=== PATIENT | female | born 1980 | race Caucasian/White ===

== ENCOUNTER 2016-05-03 21:39 | Emergency (ER) | payer SELFPAY ==
[~2016-05-03 21:39] MED LIST: FLINTSTONE VITAMINS PO; IBUP40TA PO; NICO14PA EXT; NORCOTAB PO
--- NOTE | 2016-05-03 22:59 | EDDOCDS ---
Physician Documentation [facility] Name: Melisa Rojas Age: 35 yrs Sex: Female : 1980 Arrival Date: 05/03/2016 Time: 21:39 Bed 15 Private MD: ARJUN DODGE Disposition: 05/03 22:45 Critical Care: Critical care not applicable. pc Disposition: 05/03/16 22:54 Discharged to Home/Self Care. Impression: Person with feared health complaint in whom no diagnosis is made - Normal scalp examination. - Condition is Stable. - Blank Diagnosis Outline, Medication Reconciliation, Local Pharmacy Hours form. - [facility] up[facility]; When: Call to arrange an appointment; Reason: To establish care. - Problem is new. - Symptoms are unchanged. HPI: 22:38 This 35 yrs old Female presents to ER via Walkin/Carried/Asstd with complaints of Skin Problem. 22:38 The history is obtained from the patient. She states her daughter had lice a few weeks pc ago and she has been having an itchy scalp for 6 days. She treated herself with the same shampoo used by her daughter but says she it didn't work. She has not seen any lice but is adamant that " a worm came out of my scalp today". She points to an area just above her left ear. She cannot describe the "worm" in any way and says she does not know what happened to it. She has not taken any meds for her itrching. The patient has been recently seen by a neurologist. 22:51 She denied seeing any provider except her Neurologist within the past month. Her [place] med search shows she was seen at [facility] ED just yesterday, receiving bowel care meds. When confronted with this information she attempted to deny it and then requested discharge home. Historical: - Allergies: Benadryl (hyper); - Home Meds: 1. Adderall XR 20 mg oral cp24 1 cap twice a day 2. Suboxone 8-2 mg SL film once daily 3. modafinil 200 mg oral tab 1 tab once daily - PMHx: Narcolepsy; Opioid Abuse; - PSHx: laproscopy for endometriosis; Cesearean Section; - The history from nurses notes was reviewed: and elements of the historical information I have obtained differs from that reported to nursing. - Social history: Smoking status: Patient uses tobacco products, heavy tobacco smoker. No barriers to communication noted, The patient speaks fluent Irish. - Family history: Not pertinent. - : The pt / caregiver states he / she is not on anticoagulants. Home medication list is obtained from the patient. - Hospitalizations: : No recent hospitalization is reported. - Exposure Risk Screening:: None identified. - Immunization history:: All immunizations up-to-date. - Social history:: the patient smokes cigarettes the patient drinks alcohol. 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 pc Exam: 22:42 General Appearance: no acute distress, alert, anxious. pc 22:42 EENT: Her entire scalp was inspected. There are no lesions, no areas of erythema, no areas of swelling, no skin eruptions, no lice/nits and only an occasional flake of dry skin. 22:42 Skin: skin color is normal, warm, dry, no rashes, no lesions. Vital Signs: 21:42 BP 144 / 87; Pulse 103; Resp 18 S; Temp 97.5(O); Pulse Ox 99% on R/A; Weight 58.97 kg / gr2 130.01 lbs (R); Height 5 ft. 4 in. (162.56 cm) (R); Pain 2/10; 22:58 BP 138 / 72; Pulse 100; Resp 18; Pulse Ox 99% on R/A; Pain 0/10; tm5 21:42 Body Mass Index 22.31 (58.97 kg, 162.56 cm) gr2 MDM: 22:45 Differential Diagnosis: anxiety reaction, no evidence of skin eruption/disorder, scalp pc pruritus. Plan: advice to establish with PCP. Data reviewed: old medical records, vital signs, nurses notes. Test interpretation: none. The patient has been re-examined and re-evaluated. There is no appreciated change of the patient's symptoms at this time. Disposition: The historical points, examination findings, and any diagnostic results supporting the provided diagnosis, were discussed with the patient or legal guardian. The need for outpatient follow up with the provider listed on their discharge instructions was discussed. They were encouraged to return to [facility], or the nearest ED, if symptoms worsen/persist, or for any other questions/concerns. Signatures: Joshua Mann MD MD Deidra LazaroRN RN rs3 Naila RussoRN RN tm5 The chart was reviewed and I authenticate all verbal orders and agree with the evaluation and treatment provided.Corrections: (The following items were deleted from the chart) 22:42 21:51 PMHx: norcolepsy; [facility] 22:42 21:51 PMHx: opiod addiction; [facility] 22:54 22:45 Plan: meds, advice to establish with PCP [facility] MTDD
--- NOTE | 2016-05-03 22:59 | EDDOCDS ---
Nurse's Notes [facility] Name: Melisa Rojas Age: 35 yrs Sex: Female : 1980 Arrival Date: 05/03/2016 Time: 21:39 Bed 15 Private MD: ARJUN DODGE Diagnosis: Person with feared health complaint in whom no diagnosis is made-Normal scalp examination Presentation: 05/03 21:45 Presenting complaint: Patient states: had step daughter treated for head lice few weeks rs3 ago. reports of itching and feeling of crawling in head for couple of days. has not visibly seen any headlice. Adult Sepsis Screening: The patient does not have new or worsening altered mentation. Patient's respiratory rate is less than 22. Systolic blood pressure is greater than 100. Patient has a qSOFA score of 0- Negative Sepsis Screen. Suicide/Homicide risk assessment- the patient denies having any suicidal and/or homicidal ideations and does not present with any other emotional, behavioral or mental health complaints. Status: Patient is not a manager managed backup services or dependent. Transition of care: patient was not received from another setting of care. 21:45 Acuity: ED Level 5 rs3 21:45 Method Of Arrival: Walkin/Carried/Asstd rs3 Triage Assessment: 21:51 General: Appears in no apparent distress. Pain: Denies pain. Pt Declines HIV testing. 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 Adderall XR 20 mg oral cp24 1 cap twice a day 2. Suboxone 8-2 mg SL film once daily 3. modafinil 200 mg oral tab 1 tab once daily - PMHx: Narcolepsy; Opioid Abuse; - PSHx: laproscopy for endometriosis; Cesearean Section; - The history from nurses notes was reviewed: and elements of the historical information I have obtained differs from that reported to nursing. - Social history: Smoking status: Patient uses tobacco products, heavy tobacco smoker. No barriers to communication noted, The patient speaks fluent Korean. - Family history: Not pertinent. - : The pt / caregiver states he / she is not on anticoagulants. Home medication list is obtained from the patient. - Hospitalizations: : No recent hospitalization is reported. - Exposure Risk Screening:: None identified. - Immunization history:: All immunizations up-to-date. - Social history:: the patient smokes cigarettes the patient drinks alcohol. Screenin:29 Screening information is obtained from the patient. Fall risk: No risks identified. tm5 Assistance ADL's: requires no assistance with activities of daily living. Abuse/DV Screen: The patient / caregiver reports he/she is: not in a situation that causes fear, pain or injury. Nutritional screening: No deficits noted. Advance Directives: There is no active DNR order. home support is adequate. Assessment: 22:29 General: Appears in no apparent distress, Behavior is appropriate for age, cooperative. tm5 Pain: Denies pain. Neurological: Level of Consciousness is awake, alert, obeys commands, Oriented to person, place, time. Respiratory: Airway is patent Respiratory effort is even, unlabored, Respiratory pattern is regular, symmetrical. Derm: Skin is pink, warm & dry. 22:58 Reassessment: Patient appears in no apparent distress at this time. tm5 Vital Signs: 21:42 BP 144 / 87; Pulse 103; Resp 18 S; Temp 97.5(O); Pulse Ox 99% on R/A; Weight 58.97 kg gr2 (R); Height 5 ft. 4 in. (162.56 cm) (R); Pain 2/10; 22:58 BP 138 / 72; Pulse 100; Resp 18; Pulse Ox 99% on R/A; Pain 0/10; tm5 21:42 Body Mass Index 22.31 (58.97 kg, 162.56 cm) gr2 Vitals: 21:42 Log In Time: May 03, 2016 at 21:42. gr2 ED Course: 21:41 Patient visited by No De La Torre. gr2 21:41 ARJUN DODGE is Private Physician. gr2 21:41 Patient moved to Waiting gr2 21:43 Patient visited by No De La Torre. gr2 21:43 Patient moved to Pre RCE gr2 21:48 Triage Initiated rs3 22:26 Patient moved to 15 cz 22:29 Awaiting ED physician evaluation. tm5 22:29 The patient / caregiver is instructed regarding the plan of care and ED course. tm5 22:29 No IV's were initiated during this patient's visit. tm5 22:30 Patient visited by Naila Russo,DEWEY. tm5 22:32 Joshua Mann MD is Attending Physician. pc 22:34 Patient visited by Naila Rsuso RN. tm5 22:34 ED physician to see patient. tm5 22:38 Patient visited by Joshua Mann MD. pc 22:54 [facility] is Referral Physician. pc 22:58 No procedures done that require assistance. tm5 Order Results: There are currently no results for this order. Outcome: 22:54 Discharge ordered by Provider. pc 22:58 Discharge Assessment: Patient awake, alert and oriented x 3. No cognitive and/or tm5 functional deficits noted. Patient verbalized understanding of disposition instructions. patient administered narcotics - no. The following High Risk Discharge criteria are identified: None. Discharged to home ambulatory, with friend. Condition: good. Discharge instructions given to patient, Instructed on discharge instructions, follow up and referral plans. Demonstrated understanding of instructions, Pt was receptive of discharge instructions/ teaching. No special radiology studies were completed. Property :Personal belongings accompany Pt. 22:59 Patient left the ED. tm5 Signatures: Joshua Mann MD MD Bj Humphrey RN RN cz Deidra Lazaro RN RN rs3 No De La Torre gr2 Naila Russo,DEWEY RN tm5 Corrections: (The following items were deleted from the chart) 21:49 21:45 Presenting complaint: Patient states: had step daughter treated for head lice few rs3 weeks ago. reports of itching and feeling of crawling in head for couple of days rs3 22:42 21:51 PMHx: norcolepsy; rs3 pc 22:42 21:51 PMHx: opiod addiction; rs3 pc MTDD
--- NOTE | 2016-05-06 00:01 | EDDOCDS ---
Physician Documentation [facility] Name: Melisa Rojas Age: 35 yrs Sex: Female : 1980 Arrival Date: 05/03/2016 Time: 21:39 Bed 15 Private MD: ARJUN DODGE Disposition: 05/03 22:45 Critical Care: Critical care not applicable. pc Disposition: 05/03/16 22:54 Discharged to Home/Self Care. Impression: Person with feared health complaint in whom no diagnosis is made - Normal scalp examination. - Condition is Stable. - Blank Diagnosis Outline, Medication Reconciliation, Local Pharmacy Hours form. - Follow up: [facility]; When: Call to arrange an appointment; Reason: To establish care. - Problem is new. - Symptoms are unchanged. HPI: 22:38 This 35 yrs old Female presents to ER via Walkin/Carried/Asstd with complaints of Skin Problem. 22:38 The history is obtained from the patient. She states her daughter had lice a few weeks pc ago and she has been having an itchy scalp for 6 days. She treated herself with the same shampoo used by her daughter but says she it didn't work. She has not seen any lice but is adamant that " a worm came out of my scalp today". She points to an area just above her left ear. She cannot describe the "worm" in any way and says she does not know what happened to it. She has not taken any meds for her itrching. The patient has been recently seen by a neurologist. 22:51 She denied seeing any provider except her Neurologist within the past month. Her [place] [facility] search shows she was seen at [facility] ED just yesterday, receiving bowel care meds. When confronted with this information she attempted to deny it and then requested discharge home. Historical: - Allergies: Benadryl (hyper); - Home Meds: 1. Adderall XR 20 mg oral cp24 1 cap twice a day 2. Suboxone 8-2 mg SL film once daily 3. modafinil 200 mg oral tab 1 tab once daily - PMHx: Narcolepsy; Opioid Abuse; - PSHx: laproscopy for endometriosis; Cesearean Section; - The history from nurses notes was reviewed: and elements of the historical information I have obtained differs from that reported to nursing. - Social history: Smoking status: Patient uses tobacco products, heavy tobacco smoker. No barriers to communication noted, The patient speaks fluent Upper Sorbian. - Family history: Not pertinent. - : The pt / caregiver states he / she is not on anticoagulants. Home medication list is obtained from the patient. - Hospitalizations: : No recent hospitalization is reported. - Exposure Risk Screening:: None identified. - Immunization history:: All immunizations up-to-date. - Social history:: the patient smokes cigarettes the patient drinks alcohol. 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 pc Exam: 22:42 General Appearance: no acute distress, alert, anxious. pc 22:42 EENT: Her entire scalp was inspected. There are no lesions, no areas of erythema, no areas of swelling, no skin eruptions, no lice/nits and only an occasional flake of dry skin. 22:42 Skin: skin color is normal, warm, dry, no rashes, no lesions. Vital Signs: 21:42 BP 144 / 87; Pulse 103; Resp 18 S; Temp 97.5(O); Pulse Ox 99% on R/A; Weight 58.97 kg / gr2 130.01 lbs (R); Height 5 ft. 4 in. (162.56 cm) (R); Pain 2/10; 22:58 BP 138 / 72; Pulse 100; Resp 18; Pulse Ox 99% on R/A; Pain 0/10; tm5 21:42 Body Mass Index 22.31 (58.97 kg, 162.56 cm) gr2 MDM: 22:45 Differential Diagnosis: anxiety reaction, no evidence of skin eruption/disorder, scalp pc pruritus. Plan: advice to establish with PCP. Data reviewed: old medical records, vital signs, nurses notes. Test interpretation: none. The patient has been re-examined and re-evaluated. There is no appreciated change of the patient's symptoms at this time. Disposition: The historical points, examination findings, and any diagnostic results supporting the provided diagnosis, were discussed with the patient or legal guardian. The need for outpatient follow up with the provider listed on their discharge instructions was discussed. They were encouraged to return to [facility], or the nearest ED, if symptoms worsen/persist, or for any other questions/concerns. Signatures: Joshua Mann MD MD Deidra LazaroRN RN rs3 Naila RussoRN RN tm5 The chart was reviewed and I authenticate all verbal orders and agree with the evaluation and treatment provided.Corrections: (The following items were deleted from the chart) 22:42 21:51 PMHx: norcolepsy; [facility] 22:42 21:51 PMHx: opiod addiction; [facility] 22:54 22:45 Plan: meds, advice to establish with PCP [facility] Chart Complete MTDD
--- NOTE | 2016-05-06 00:01 | EDDOCDS ---
Physician Documentation [facility] Name: Melisa Rojas Age: 35 yrs Sex: Female : 1980 Arrival Date: 05/03/2016 Time: 21:39 Bed 15 Private MD: ARJUN DODGE Disposition: 05/03 22:45 Critical Care: Critical care not applicable. pc Disposition: 05/03/16 22:54 Discharged to Home/Self Care. Impression: Person with feared health complaint in whom no diagnosis is made - Normal scalp examination. - Condition is Stable. - Blank Diagnosis Outline, Medication Reconciliation, Local Pharmacy Hours form. - Follow up: [facility]; When: Call to arrange an appointment; Reason: To establish care. - Problem is new. - Symptoms are unchanged. HPI: 22:38 This 35 yrs old Female presents to ER via Walkin/Carried/Asstd with complaints of Skin Problem. 22:38 The history is obtained from the patient. She states her daughter had lice a few weeks pc ago and she has been having an itchy scalp for 6 days. She treated herself with the same shampoo used by her daughter but says she it didn't work. She has not seen any lice but is adamant that " a worm came out of my scalp today". She points to an area just above her left ear. She cannot describe the "worm" in any way and says she does not know what happened to it. She has not taken any meds for her itrching. The patient has been recently seen by a neurologist. 22:51 She denied seeing any provider except her Neurologist within the past month. Her [employer] med search shows she was seen at [facility] ED just yesterday, receiving bowel care meds. When confronted with this information she attempted to deny it and then requested discharge home. Historical: - Allergies: Benadryl (hyper); - Home Meds: 1. Adderall XR 20 mg oral cp24 1 cap twice a day 2. Suboxone 8-2 mg SL film once daily 3. modafinil 200 mg oral tab 1 tab once daily - PMHx: Narcolepsy; Opioid Abuse; - PSHx: laproscopy for endometriosis; Cesearean Section; - The history from nurses notes was reviewed: and elements of the historical information I have obtained differs from that reported to nursing. - Social history: Smoking status: Patient uses tobacco products, heavy tobacco smoker. No barriers to communication noted, The patient speaks fluent Welsh. - Family history: Not pertinent. - : The pt / caregiver states he / she is not on anticoagulants. Home medication list is obtained from the patient. - Hospitalizations: : No recent hospitalization is reported. - Exposure Risk Screening:: None identified. - Immunization history:: All immunizations up-to-date. - Social history:: the patient smokes cigarettes the patient drinks alcohol. 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 pc Exam: 22:42 General Appearance: no acute distress, alert, anxious. pc 22:42 EENT: Her entire scalp was inspected. There are no lesions, no areas of erythema, no areas of swelling, no skin eruptions, no lice/nits and only an occasional flake of dry skin. 22:42 Skin: skin color is normal, warm, dry, no rashes, no lesions. Vital Signs: 21:42 BP 144 / 87; Pulse 103; Resp 18 S; Temp 97.5(O); Pulse Ox 99% on R/A; Weight 58.97 kg / gr2 130.01 lbs (R); Height 5 ft. 4 in. (162.56 cm) (R); Pain 2/10; 22:58 BP 138 / 72; Pulse 100; Resp 18; Pulse Ox 99% on R/A; Pain 0/10; tm5 21:42 Body Mass Index 22.31 (58.97 kg, 162.56 cm) gr2 MDM: 22:45 Differential Diagnosis: anxiety reaction, no evidence of skin eruption/disorder, scalp pc pruritus. Plan: advice to establish with PCP. Data reviewed: old medical records, vital signs, nurses notes. Test interpretation: none. The patient has been re-examined and re-evaluated. There is no appreciated change of the patient's symptoms at this time. Disposition: The historical points, examination findings, and any diagnostic results supporting the provided diagnosis, were discussed with the patient or legal guardian. The need for outpatient follow up with the provider listed on their discharge instructions was discussed. They were encouraged to return to [facility], or the nearest ED, if symptoms worsen/persist, or for any other questions/concerns. Signatures: Joshua Mann MD MD Deidra LazaroRN RN rs3 Naila RussoRN RN tm5 The chart was reviewed and I authenticate all verbal orders and agree with the evaluation and treatment provided.Corrections: (The following items were deleted from the chart) 22:42 21:51 PMHx: norcolepsy; [facility] 22:42 21:51 PMHx: opiod addiction; [facility] 22:54 22:45 Plan: meds, advice to establish with PCP [facility] Chart Complete MTDD
--- NOTE | 2016-05-06 00:01 | EDDOCDS ---
Nurse's Notes [facility] Name: Melisa Rojas Age: 35 yrs Sex: Female : 1980 Arrival Date: 05/03/2016 Time: 21:39 Bed 15 Private MD: ARJUN DODGE Diagnosis: Person with feared health complaint in whom no diagnosis is made-Normal scalp examination Presentation: 05/03 21:45 Presenting complaint: Patient states: had step daughter treated for head lice few weeks rs3 ago. reports of itching and feeling of crawling in head for couple of days. has not visibly seen any headlice. Adult Sepsis Screening: The patient does not have new or worsening altered mentation. Patient's respiratory rate is less than 22. Systolic blood pressure is greater than 100. Patient has a qSOFA score of 0- Negative Sepsis Screen. Suicide/Homicide risk assessment- the patient denies having any suicidal and/or homicidal ideations and does not present with any other emotional, behavioral or mental health complaints. 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 Transition of care: patient was not received from another setting of care. 21:45 Acuity: ED Level 5 rs3 21:45 Method Of Arrival: Walkin/Carried/Asstd rs3 Triage Assessment: 21:51 General: Appears in no apparent distress. Pain: Denies pain. Pt Declines HIV testing. 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 Adderall XR 20 mg oral cp24 1 cap twice a day 2. Suboxone 8-2 mg SL film once daily 3. modafinil 200 mg oral tab 1 tab once daily - PMHx: Narcolepsy; Opioid Abuse; - PSHx: laproscopy for endometriosis; Cesearean Section; - The history from nurses notes was reviewed: and elements of the historical information I have obtained differs from that reported to nursing. - Social history: Smoking status: Patient uses tobacco products, heavy tobacco smoker. No barriers to communication noted, The patient speaks fluent Polish. - Family history: Not pertinent. - : The pt / caregiver states he / she is not on anticoagulants. Home medication list is obtained from the patient. - Hospitalizations: : No recent hospitalization is reported. - Exposure Risk Screening:: None identified. - Immunization history:: All immunizations up-to-date. - Social history:: the patient smokes cigarettes the patient drinks alcohol. Screenin:29 Screening information is obtained from the patient. Fall risk: No risks identified. tm5 Assistance ADL's: requires no assistance with activities of daily living. Abuse/DV Screen: The patient / caregiver reports he/she is: not in a situation that causes fear, pain or injury. Nutritional screening: No deficits noted. Advance Directives: There is no active DNR order. home support is adequate. Assessment: 22:29 General: Appears in no apparent distress, Behavior is appropriate for age, cooperative. tm5 Pain: Denies pain. Neurological: Level of Consciousness is awake, alert, obeys commands, Oriented to person, place, time. Respiratory: Airway is patent Respiratory effort is even, unlabored, Respiratory pattern is regular, symmetrical. Derm: Skin is pink, warm & dry. 22:58 Reassessment: Patient appears in no apparent distress at this time. tm5 Vital Signs: 21:42 BP 144 / 87; Pulse 103; Resp 18 S; Temp 97.5(O); Pulse Ox 99% on R/A; Weight 58.97 kg gr2 (R); Height 5 ft. 4 in. (162.56 cm) (R); Pain 2/10; 22:58 BP 138 / 72; Pulse 100; Resp 18; Pulse Ox 99% on R/A; Pain 0/10; tm5 21:42 Body Mass Index 22.31 (58.97 kg, 162.56 cm) gr2 Vitals: 21:42 Log In Time: May 03, 2016 at 21:42. gr2 ED Course: 21:41 Patient visited by No De La Torre. gr2 21:41 ARJUN DODGE is Private Physician. gr2 21:41 Patient moved to Waiting gr2 21:43 Patient visited by No De La Torre. gr2 21:43 Patient moved to Pre RCE gr2 21:48 Triage Initiated rs3 22:26 Patient moved to 15 cz 22:29 Awaiting ED physician evaluation. tm5 22:29 The patient / caregiver is instructed regarding the plan of care and ED course. tm5 22:29 No IV's were initiated during this patient's visit. tm5 22:30 Patient visited by Naila Russo,DEWEY. tm5 22:32 Joshua Mann MD is Attending Physician. pc 22:34 Patient visited by Naila Russo RN. tm5 22:34 ED physician to see patient. tm5 22:38 Patient visited by Joshua Mann MD. pc 22:54 [facility] is Referral Physician. pc 22:58 No procedures done that require assistance. tm5 Order Results: There are currently no results for this order. Outcome: 22:54 Discharge ordered by Provider. pc 22:58 Discharge Assessment: Patient awake, alert and oriented x 3. No cognitive and/or tm5 functional deficits noted. Patient verbalized understanding of disposition instructions. patient administered narcotics - no. The following High Risk Discharge criteria are identified: None. Discharged to home ambulatory, with friend. Condition: good. Discharge instructions given to patient, Instructed on discharge instructions, follow up and referral plans. Demonstrated understanding of instructions, Pt was receptive of discharge instructions/ teaching. No special radiology studies were completed. Property :Personal belongings accompany Pt. 22:59 Patient left the ED. tm5 Signatures: Joshua Mann MD MD Bj Humphrey RN RN cz Deidra Lazaor RN RN rs3 No De La Torre gr2 Naila Russo,DEWEY RN tm5 Corrections: (The following items were deleted from the chart) 21:49 21:45 Presenting complaint: Patient states: had step daughter treated for head lice few rs3 weeks ago. reports of itching and feeling of crawling in head for couple of days rs3 22:42 21:51 PMHx: norcolepsy; rs3 pc 22:42 21:51 PMHx: opiod addiction; rs3 pc Chart Complete MTDD
== END 2016-05-03 22:59 | disposition home or self-care (01) ==
LOC: M ED 21:39
DX: L98.9 Disorder of the skin and subcutaneous tissue, unspecified (principal); G47.419 Narcolepsy without cataplexy; F11.10 Opioid abuse, uncomplicated; Z79.899 Other long term (current) drug therapy; Z88.8 Allergy status to other drugs, medicaments and biological substances; F17.210 Nicotine dependence, cigarettes, uncomplicated

== ENCOUNTER 2016-05-30 11:37 | Emergency (ER) | payer SELFPAY ==
--- NOTE | 2016-05-30 13:56 | EDDOCDS ---
Nurse's Notes [facility] Name: Melisa Rojas Age: 35 yrs Sex: Female : 1980 Arrival Date: 05/30/2016 Time: 11:37 Bed TR8 Private MD: NO PRIMARY PHYSICIAN, . Diagnosis: Anxiety disorder, unspecified;Dermatitis, unspecified-DISHYDRODIC ECZEMA BILATERAL HANDS Presentation: 05/30 11:53 Presenting complaint: Patient states: she has had a rash on her hands and shoulders for kcs over a month. Adult Sepsis Screening: The patient does not have new or worsening altered mentation. Patient's respiratory rate is less than 22. Systolic blood pressure is greater than 100. Patient has a qSOFA score of 0- Negative Sepsis Screen. Suicide/Homicide risk assessment- the patient denies having any suicidal and/or homicidal ideations and does not present with any other emotional, behavioral or mental health complaints. 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 Transition of care: patient was not received from another setting of care. 11:53 Acuity: ED Level 5 kcs 11:53 Method Of Arrival: Walkin/Carried/Asstd kcs Triage Assessment: 11:55 General: Appears comfortable, well developed, well nourished, Behavior is cooperative, kcs flat. Pain: Location: hands Pain currently is 6 out of 10 on a pain scale. HIV screening NA for this visit Offered previously. Neurological: Level of Consciousness is awake, alert. Respiratory: Airway is patent Respiratory effort is even, unlabored, Respiratory pattern is regular, symmetrical. Derm: Skin is intact, is healthy with good turgor, Skin is dry, Skin is normal. 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 Adderall XR 20 mg Oral cp24 1 cap twice a day 2. Suboxone 8-2 mg SL film once daily 3. modafinil 200 mg oral tab 1 tab once daily 4. on an antibiotic for MRSA on her hands - PMHx: Narcolepsy; Opioid abuse; - PSHx: laproscopy for endometriosis; Cesearean Section; - Social history: Smoking status: Patient uses tobacco products, heavy tobacco smoker. No barriers to communication noted, The patient speaks fluent Welsh. - Family history: Not pertinent. - : The pt / caregiver states he / she is not on anticoagulants. Home medication list is obtained from the patient, [email or web address] import data. - Exposure Risk Screening:: None identified. Screenin:52 Screening information is obtained from the patient. Fall risk: No risks identified. ms18 Assistance ADL's: requires no assistance with activities of daily living. Abuse/DV Screen: The patient / caregiver reports he/she is: not in a situation that causes fear, pain or injury. Nutritional screening: No deficits noted. Advance Directives: There is no living will. home support is adequate. Assessment: 13:52 General: Appears in no apparent distress, unkempt, Behavior is anxious, cooperative, ms18 quiet. Pain: Location: abdomen, right hand and left hand Pain currently is 8 out of 10 on a pain scale. Neurological: Level of Consciousness is awake, alert, obeys commands, Oriented to person, place, time. Respiratory: Airway is patent Respiratory effort is even, unlabored, Breath sounds are clear bilaterally. Derm: Skin is pink, warm & dry. Rash noted that is itchy, red, on right hand and left hand. Vital Signs: 11:38 BP 120 / 70; Pulse 101; Resp 17; Temp 97.2(O); Pulse Ox 97% on R/A; Weight 58.97 kg lr2 (R); Height 5 ft. 4 in. (162.56 cm) (R); Pain 7/10; 13:52 BP 142 / 87; Pulse 85; Resp 18; Temp 98; Pulse Ox 100% ; Pain 8/10; ms18 11:38 Body Mass Index 22.31 (58.97 kg, 162.56 cm) lr2 Vitals: 11:38 Log In Time: May 30, 2016 at 11:37. lr2 ED Course: 11:38 Patient visited by Hanna King. lr2 11:38 Patient moved to Waiting lr2 11:39 NO PRIMARY PHYSICIAN, . is Private Physician. lr2 11:40 Patient moved to Pre RCE lr2 11:54 Triage Initiated kcs 12:47 Patient moved to Triage 3 ms18 13:13 [facility] dt4 13:13 Beba Manzano MD is Attending Physician. dt4 13:13 Patient visited by Michelle Champagne PA-C. dt4 13:34 [facility] is Referral Physician. dt4 13:50 Patient moved to [facility] ms18 13:52 The patient / caregiver is instructed regarding the plan of care and ED course. Patient ms18 has correct armband on for positive identification. Property sent home with patient. :Personal belongings accompany Pt. 13:52 No IV's were initiated during this patient's visit. No procedures done that require ms18 assistance. Order Results: There are currently no results for this order. Outcome: 13:36 Discharge ordered by Provider. dt4 13:52 Discharge Assessment: Patient awake, alert and oriented x 3. No cognitive and/or ms18 functional deficits noted. Patient verbalized understanding of disposition instructions. patient administered narcotics - no. The following High Risk Discharge criteria are identified: None. Discharged to home ambulatory. Condition: good Condition: stable. Discharge instructions given to patient, Instructed on discharge instructions, follow up and referral plans. medication usage, Demonstrated understanding of instructions, medications, Pt was receptive of discharge instructions/ teaching. Prescriptions given X 2. No special radiology studies were completed. 13:55 Patient left the ED. ms18 Signatures: Beverley Burroughs, RN RN [facility] Michelle Champagne PA-C PA-C dt4 Cheri Holly RN RN ms[address] [facility]
--- NOTE | 2016-05-30 13:56 | EDDOCDS ---
Physician Documentation [facility] Name: Melisa Rojas Age: 35 yrs Sex: Female : 1980 Arrival Date: 05/30/2016 Time: 11:37 Bed TR8 Private MD: NO PRIMARY PHYSICIAN, . Disposition: 05/30/16 13:36 Discharged to Home/Self Care. Impression: Anxiety disorder, unspecified, Dermatitis, unspecified - DISHYDRODIC ECZEMA BILATERAL HANDS. - Condition is Stable. - Discharge Instructions: Rash, Generalized Anxiety Disorder. - Prescriptions for clobetasol 0.05 % Topical cream - apply 1 application by TOPICAL route 2 times per day for 14 days; 1 tube. Xanax 0.25 mg Oral Tablet - take 1 tablet by ORAL route every 8 hours As needed MDD: 3 tabs; 10 tablet. - Medication Reconciliation, Local Pharmacy Hours form. - Follow up: Emergency Department; When: As needed; Reason: Worsening of conditions. Follow [facility]: [facility]; When: Call to arrange an appointment; Reason: Recheck today's complaints, Continuance of care, To establish care. - Problem is new. - Symptoms are unchanged. Historical: - Allergies: Benadryl (hyper); - Home Meds: 1. Adderall XR 20 mg Oral cp24 1 cap twice a day 2. Suboxone 8-2 mg SL film once daily 3. modafinil 200 mg oral tab 1 tab once daily 4. on an antibiotic for MRSA on her hands - PMHx: Narcolepsy; Opioid abuse; - PSHx: laproscopy for endometriosis; Cesearean Section; - Social history: Smoking status: Patient uses tobacco products, heavy tobacco smoker. No barriers to communication noted, The patient speaks fluent Austrian. - Family history: Not pertinent. - : The pt / caregiver states he / she is not on anticoagulants. Home medication list is obtained from the patient, [employer] import data. - Exposure Risk Screening:: None identified. 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 4 in. (162.56 cm) (R); Pain 7/10; 13:52 BP 142 / 87; Pulse 85; Resp 18; Temp 98; Pulse Ox 100% ; Pain 8/10; ms18 11:38 Body Mass Index 22.31 (58.97 kg, 162.56 cm) lr2 MDM: 13:21 Undress patient appropriately for examination ordered. dt4 13:51 Financial registration complete. mm15 Signatures: Beverley Burroughs RN RN [facility] Yudelka Landaverde mm15 Michelle Champagne, PA-C PA-C dt4 Cheri Holly RN RN ms18 MTDD
--- NOTE | 2016-06-01 14:56 | EDDOCDS ---
Nurse's Notes [facility] Name: Melisa Rojas Age: 35 yrs Sex: Female : 1980 Arrival Date: 05/30/2016 Time: 11:37 Bed TR8 Private MD: NO PRIMARY PHYSICIAN, . Diagnosis: Anxiety disorder, unspecified;Dermatitis, unspecified-DISHYDRODIC ECZEMA BILATERAL HANDS Presentation: 05/30 11:53 Presenting complaint: Patient states: she has had a rash on her hands and shoulders for kcs over a month. Adult Sepsis Screening: The patient does not have new or worsening altered mentation. Patient's respiratory rate is less than 22. Systolic blood pressure is greater than 100. Patient has a qSOFA score of 0- Negative Sepsis Screen. Suicide/Homicide risk assessment- the patient denies having any suicidal and/or homicidal ideations and does not present with any other emotional, behavioral or mental health complaints. 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 Transition of care: patient was not received from another setting of care. 11:53 Acuity: ED Level 5 kcs 11:53 Method Of Arrival: Walkin/Carried/Asstd kcs Triage Assessment: 11:55 General: Appears comfortable, well developed, well nourished, Behavior is cooperative, kcs flat. Pain: Location: hands Pain currently is 6 out of 10 on a pain scale. HIV screening NA for this visit Offered previously. Neurological: Level of Consciousness is awake, alert. Respiratory: Airway is patent Respiratory effort is even, unlabored, Respiratory pattern is regular, symmetrical. Derm: Skin is intact, is healthy with good turgor, Skin is dry, Skin is normal. 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 Adderall XR 20 mg Oral cp24 1 cap twice a day 2. Suboxone 8-2 mg SL film once daily 3. modafinil 200 mg oral tab 1 tab once daily 4. on an antibiotic for MRSA on her hands - PMHx: Narcolepsy; Opioid abuse; - PSHx: laproscopy for endometriosis; Cesearean Section; - Social history: Smoking status: Patient uses tobacco products, heavy tobacco smoker. No barriers to communication noted, The patient speaks fluent Georgian. - Family history: Not pertinent. - : The pt / caregiver states he / she is not on anticoagulants. Home medication list is obtained from the patient, [employer] import data. - Exposure Risk Screening:: None identified. Screenin:52 Screening information is obtained from the patient. Fall risk: No risks identified. ms18 Assistance ADL's: requires no assistance with activities of daily living. Abuse/DV Screen: The patient / caregiver reports he/she is: not in a situation that causes fear, pain or injury. Nutritional screening: No deficits noted. Advance Directives: There is no living will. home support is adequate. Assessment: 13:52 General: Appears in no apparent distress, unkempt, Behavior is anxious, cooperative, ms18 quiet. Pain: Location: abdomen, right hand and left hand Pain currently is 8 out of 10 on a pain scale. Neurological: Level of Consciousness is awake, alert, obeys commands, Oriented to person, place, time. Respiratory: Airway is patent Respiratory effort is even, unlabored, Breath sounds are clear bilaterally. Derm: Skin is pink, warm & dry. Rash noted that is itchy, red, on right hand and left hand. Vital Signs: 11:38 BP 120 / 70; Pulse 101; Resp 17; Temp 97.2(O); Pulse Ox 97% on R/A; Weight 58.97 kg lr2 (R); Height 5 ft. 4 in. (162.56 cm) (R); Pain 7/10; 13:52 BP 142 / 87; Pulse 85; Resp 18; Temp 98; Pulse Ox 100% ; Pain 8/10; ms18 11:38 Body Mass Index 22.31 (58.97 kg, 162.56 cm) lr2 Vitals: 11:38 Log In Time: May 30, 2016 at 11:37. lr2 ED Course: 11:38 Patient visited by Hanna King. lr2 11:38 Patient moved to Waiting lr2 11:39 NO PRIMARY PHYSICIAN, . is Private Physician. lr2 11:40 Patient moved to Pre RCE lr2 11:54 Triage Initiated kcs 12:47 Patient moved to Triage 3 ms18 13:13 Michelle Champagne [facility]C [facility] dt4 13:13 Beba Manzano MD is Attending Physician. dt4 13:13 Patient visited by Michelle Champagne PA-C. dt4 13:34 [facility] is Referral Physician. dt4 13:50 Patient moved to TR8 ms18 13:52 The patient / caregiver is instructed regarding the plan of care and ED course. Patient ms18 has correct armband on for positive identification. Property sent home with patient. :Personal belongings accompany Pt. 13:52 No IV's were initiated during this patient's visit. No procedures done that require ms18 assistance. 13:56 [facility] Payment Agreement was scanned into [employer] and attached to record. mm15 05/31 10:52 T-Sheet-- Draft Copy was scanned into [employer] and attached to record. gb Order Results: There are currently no results for this order. Outcome: 05/30 13:36 Discharge ordered by Provider. dt4 13:52 Discharge Assessment: Patient awake, alert and oriented x 3. No cognitive and/or ms18 functional deficits noted. Patient verbalized understanding of disposition instructions. patient administered narcotics - no. The following High Risk Discharge criteria are identified: None. Discharged to home ambulatory. Condition: good Condition: stable. Discharge instructions given to patient, Instructed on discharge instructions, follow up and referral plans. medication usage, Demonstrated understanding of instructions, medications, Pt was receptive of discharge instructions/ teaching. Prescriptions given X 2. No special radiology studies were completed. 13:55 Patient left the ED. ms18 Signatures: Beverley Burroughs, RN RN [facility] Trish Rizvi, Reg Reg tano StraussLandaverde Yudelka mm15 Michelle Champagne PA-C PA-C dt4 Cheri Holly RN RN ms18 Hanna King lr2 Chart Complete MTDD
--- NOTE | 2016-06-01 14:56 | EDDOCDS ---
Physician Documentation [facility] Name: Melisa Rojas Age: 35 yrs Sex: Female : 1980 Arrival Date: 05/30/2016 Time: 11:37 Bed TR8 Private MD: NO PRIMARY PHYSICIAN, . Disposition: 05/30/16 13:36 Discharged to Home/Self Care. Impression: Anxiety disorder, unspecified, Dermatitis, unspecified - DISHYDRODIC ECZEMA BILATERAL HANDS. - Condition is Stable. - Discharge Instructions: Rash, Generalized Anxiety Disorder. - Prescriptions for clobetasol 0.05 % Topical cream - apply 1 application by TOPICAL route 2 times per day for 14 days; 1 tube. Xanax 0.25 mg Oral Tablet - take 1 tablet by ORAL route every 8 hours As needed MDD: 3 tabs; 10 tablet. - Medication Reconciliation, Local Pharmacy Hours form. - Follow up: Emergency Department; When: As needed; Reason: Worsening of conditions. Follow up: [facility]; When: Call to arrange an appointment; Reason: Recheck today's complaints, Continuance of care, To establish care. - Problem is new. - Symptoms are unchanged. Historical: - Allergies: Benadryl (hyper); - Home Meds: 1. Adderall XR 20 mg Oral cp24 1 cap twice a day 2. Suboxone 8-2 mg SL film once daily 3. modafinil 200 mg oral tab 1 tab once daily 4. on an antibiotic for MRSA on her hands - PMHx: Narcolepsy; Opioid abuse; - PSHx: laproscopy for endometriosis; Cesearean Section; - Social history: Smoking status: Patient uses tobacco products, heavy tobacco smoker. No barriers to communication noted, The patient speaks fluent Japanese. - Family history: Not pertinent. - : The pt / caregiver states he / she is not on anticoagulants. Home medication list is obtained from the patient, [employer] import data. - Exposure Risk Screening:: None identified. 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 4 in. (162.56 cm) (R); Pain 7/10; 13:52 BP 142 / 87; Pulse 85; Resp 18; Temp 98; Pulse Ox 100% ; Pain 8/10; ms18 11:38 Body Mass Index 22.31 (58.97 kg, 162.56 cm) lr2 MDM: 13:21 Undress patient appropriately for examination ordered. dt4 13:51 Financial registration complete. mm15 :56 [facility] Payment Agreement was scanned into [employer] and attached to record. mm15 05/31 10:52 T-Sheet-- Draft Copy was scanned into [employer] and attached to record. gb Signatures: Beverley Burroughs, RN RN kcs Trish Rizvi, Reg Reg gb Yudelka Landaverde mm15 Michelle Champagne, PA-C PA-Óscar dt4 Cheri Holly RN RN ms18 The chart was reviewed and I authenticate all verbal orders and agree with the evaluation and treatment provided.Attachments: 05/30 13:56 [facility] Payment Agreement mm15 05/31 10:52 T-Sheet-- Draft Copy gb Chart Complete MTDD
--- NOTE | 2016-06-01 14:56 | EDDOCDS ---
Physician Documentation [facility] Name: Melisa Rojas Age: 35 yrs Sex: Female : 1980 Arrival Date: 05/30/2016 Time: 11:37 Bed TR8 Private MD: NO PRIMARY PHYSICIAN, . Disposition: 05/30/16 13:36 Discharged to Home/Self Care. Impression: Anxiety disorder, unspecified, Dermatitis, unspecified - DISHYDRODIC ECZEMA BILATERAL HANDS. - Condition is Stable. - Discharge Instructions: Rash, Generalized Anxiety Disorder. - Prescriptions for clobetasol 0.05 % Topical cream - apply 1 application by TOPICAL route 2 times per day for 14 days; 1 tube. Xanax 0.25 mg Oral Tablet - take 1 tablet by ORAL route every 8 hours As needed MDD: 3 tabs; 10 tablet. - Medication Reconciliation, Local Pharmacy Hours form. - Follow up: Emergency Department; When: As needed; Reason: Worsening of conditions. [facility]; When: Call to arrange an appointment; Reason: Recheck today's complaints, Continuance of care, To establish care. - Problem is new. - Symptoms are unchanged. Historical: - Allergies: Benadryl (hyper); - Home Meds: 1. Adderall XR 20 mg Oral cp24 1 cap twice a day 2. Suboxone 8-2 mg SL film once daily 3. modafinil 200 mg oral tab 1 tab once daily 4. on an antibiotic for MRSA on her hands - PMHx: Narcolepsy; Opioid abuse; - PSHx: laproscopy for endometriosis; Cesearean Section; - Social history: Smoking status: Patient uses tobacco products, heavy tobacco smoker. No barriers to communication noted, The patient speaks fluent [place]. - Family history: Not pertinent. - : The pt / caregiver states he / she is not on anticoagulants. Home medication list is obtained from the patient, [employer]) import data. - Exposure Risk Screening:: None identified. 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 4 in. (162.56 cm) (R); Pain 7/10; 13:52 BP 142 / 87; Pulse 85; Resp 18; Temp 98; Pulse Ox 100% ; Pain 8/10; ms18 11:38 Body Mass Index 22.31 (58.97 kg, 162.56 cm) lr2 MDM: 13:21 Undress patient appropriately for examination ordered. dt4 13:51 Financial registration complete. mm15 :[facility] Payment Agreement was scanned into [employer] and attached to record. mm15 05/31 10:52 T-Sheet-- Draft Copy was scanned into [employer] and attached to record. gb Signatures: Beverley Burroughs, RN RN kcs Trish Rizvi, Reg Reg gb Yudelka Landaverde mm15 Michelle Champagne, PA-C PA-Óscar dt4 Cheri Holly RN RN ms18 The chart was reviewed and I authenticate all verbal orders and agree with the evaluation and treatment provided.Attachments: 05/30 13:56 [facility] Payment Agreement mm15 05/31 10:52 T-Sheet-- Draft Copy gb Chart Complete MTDD
== END 2016-05-30 13:55 | disposition home or self-care (01) ==
LOC: M ED 11:37
DX: F41.9 Anxiety disorder, unspecified (principal); L30.1 Dyshidrosis [pompholyx]; G47.419 Narcolepsy without cataplexy; F11.10 Opioid abuse, uncomplicated; Z72.0 Tobacco use; Z86.14 Personal history of Methicillin resistant Staphylococcus aureus infection; Z79.899 Other long term (current) drug therapy; Z88.8 Allergy status to other drugs, medicaments and biological substances

== ENCOUNTER → 2017-06-14 | Outpatient (CLI) | payer OTHER ==
[2017-06-14 14:15] LABS: BASO # 0.1 10^3/uL (0.0-0.2); BASO % 0.8 % (0.0-1.0); EOS # 0.3 10^3/uL (0.0-0.50); EOS % 5.1 % (0.0-3.0); HEMATOCRIT 40.7 % (36.0-47.0); HEMOGLOBIN 13.9 g/dl (12.0-16.0); IMMATURE GRANULOCYTE % 0.3 % (0-3.0); LYMPH # 2.1 10^3/uL (1.5-4.5); LYMPH % 34.3 % (24.0-44.0); MEAN CORPUSCULAR HEMOGLOBIN 30.4 pg (27.0-33.0); MEAN CORPUSCULAR HGB CONC 34.2 g/dl (32.0-36.5); MEAN CORPUSCULAR VOLUME 89.1 fl (80.0-96.0); MONO # 0.5 10^3/uL (0.0-0.8); MONO % 8.9 % (0.0-5.0); NEUTROPHILS # 3.1 10^3/uL (1.8-7.7); NEUTROPHILS % 50.6 % (36.0-66.0); PLATELET COUNT, AUTOMATED 274 10^3/uL (150-450); RED BLOOD COUNT 4.57 10^6/uL (4.00-5.40); RED CELL DISTRIBUTION WIDTH 13.4 % (11.5-14.5); WHITE BLOOD COUNT 6.1 10^3/uL (4.0-10.0)
[2017-06-14 14:39] LABS: TOTAL 25(OH) VITAMIN D 12.1 NG/ML (30.0-100.0); VITAMIN B12 LEVEL 276 PG/ML (247-911)
[2017-06-14 14:58] LABS: ALBUMIN 4.2 GM/DL (3.2-5.2); ALBUMIN/GLOBULIN RATIO 1.27 (1.00-1.93); ALKALINE PHOSPHATASE 58 U/L (45-117); ALT/SGPT 15 U/L (12-78); ANION GAP 8 MEQ/L (8-16); AST/SGOT 20 U/L (7-37); BILIRUBIN,TOTAL 0.3 MG/DL (0.2-1.0); BLOOD UREA NITROGEN 11 MG/DL (7-18); CALCIUM LEVEL 8.9 MG/DL (8.5-10.1); CARBON DIOXIDE LEVEL 31 MEQ/L (21-32); CHLORIDE LEVEL 100 MEQ/L (98-107); CHOLESTEROL LEVEL 212 MG/DL (<200); CHOLESTEROL RISK RATIO 1.547 (<5); CREATININE FOR GFR 0.56 MG/DL (0.55-1.30); GLOMERULAR FILTRATION RATE > 60.0 (>60); GLUCOSE, FASTING 92 MG/DL (70-100); HDL CHOLESTEROL 137 MG/DL (>40); LDL CHOLESTEROL 65.6 MG/DL (<100); NON-HDL-C 75 MG/DL; POTASSIUM SERUM 4.1 MEQ/L (3.5-5.1); SODIUM LEVEL 139 MEQ/L (136-145); TOTAL PROTEIN 7.5 GM/DL (6.4-8.2); TRIGLYCERIDES LEVEL 47 MG/DL (<150)
[2017-06-14 15:44] LABS: ESTIMATED AVERAGE GLUCOSE 91 MG/DL (60-110); HEMOGLOBIN A1c 4.8 %
== END ==
LOC: M LAB 12:55
DX: F41.1 Generalized anxiety disorder (principal)
CPT/HCPCS: 84443

== ENCOUNTER 2017-07-28 10:08 | Emergency (ER) | payer OTHER ==
[2017-07-28 11:20] LABS: HEMATOCRIT 41.5 % (36.0-47.0); HEMOGLOBIN 14.5 g/dl (12.0-15.5); MEAN CORPUSCULAR HEMOGLOBIN 30.8 pg (27.0-33.0); MEAN CORPUSCULAR HGB CONC 34.9 g/dl (32.0-36.5); MEAN CORPUSCULAR VOLUME 88.1 fl (80.0-96.0); PLATELET COUNT, AUTOMATED 280 10^3/uL (150-450); RED BLOOD COUNT 4.71 10^6/uL (4.00-5.40); RED CELL DISTRIBUTION WIDTH 13.4 % (11.5-14.5); WHITE BLOOD COUNT 7.8 10^3/uL (4.0-10.0)
[2017-07-28 11:37] LABS: CONTROL LINE HCG INT CTR LINE PRESENT; HCG, SERUM QUALITATIVE NEGATIVE (NEGATIVE)
[2017-07-28 11:45] LABS: AMPHETAMINES LEVEL URINE NEGATIVE (NEGATIVE); BARBITURATES URINE NEGATIVE (NEGATIVE); BENZODIAZEPINES URINE NEGATIVE (NEGATIVE); CANNABINOIDS URINE NEGATIVE (NEGATIVE); COCAINE METABOLITE URINE NEGATIVE (NEGATIVE); METHADONE URINE NEGATIVE (NEGATIVE); OPIATES URINE NEGATIVE (NEGATIVE); PHENCYCLIDINE URINE NEGATIVE (NEGATIVE)
[2017-07-28 11:54] LABS: ALBUMIN 4.1 GM/DL (3.2-5.2); ALBUMIN/GLOBULIN RATIO 0.98 (1.00-1.93); ALKALINE PHOSPHATASE 92 U/L (45-117); ALT/SGPT 28 U/L (12-78); ANION GAP 7 MEQ/L (8-16); AST/SGOT 35 U/L (7-37); BILIRUBIN,DIRECT 0.2 MG/DL (0.0-0.2); BILIRUBIN,TOTAL 0.4 MG/DL (0.2-1.0); BLOOD UREA NITROGEN 7 MG/DL (7-18); CALCIUM LEVEL 8.7 MG/DL (8.5-10.1); CARBON DIOXIDE LEVEL 32 MEQ/L (21-32); CHLORIDE LEVEL 103 MEQ/L (98-107); CREATININE FOR GFR 0.55 MG/DL (0.55-1.30); ETHYL ALCOHOL (ETHANOL) 0.184 % (0.000-0.010); GLOMERULAR FILTRATION RATE > 60.0 (>60); GLUCOSE, FASTING 96 MG/DL (70-100); POTASSIUM SERUM 4.5 MEQ/L (3.5-5.1); SALICYLATE LEVEL 2.9 MG/DL (5.0-30.0); SODIUM LEVEL 142 MEQ/L (136-145); TOTAL PROTEIN 8.3 GM/DL (6.4-8.2)
[2017-07-28 11:56] LABS: ACETAMINOPHEN LEVEL < 2.0 UG/ML (10.0-30.0)
== END 2017-07-28 12:34 | disposition left against medical advice (07) ==
LOC: M ED 10:08
DX: F10.929 Alcohol use, unspecified with intoxication, unspecified (principal); Z53.21 Procedure and treatment not carried out due to patient leaving prior to being seen by health care provider
CPT/HCPCS: 80320

== ENCOUNTER 2017-09-08 11:29 | Emergency (ER) | payer OTHER ==
[2017-09-08 12:23] LABS: HEMATOCRIT 41.4 % (36.0-47.0); HEMOGLOBIN 14.2 g/dl (12.0-15.5); MEAN CORPUSCULAR HEMOGLOBIN 31.1 pg (27.0-33.0); MEAN CORPUSCULAR HGB CONC 34.3 g/dl (32.0-36.5); MEAN CORPUSCULAR VOLUME 90.6 fl (80.0-96.0); PLATELET COUNT, AUTOMATED 311 10^3/uL (150-450); RED BLOOD COUNT 4.57 10^6/uL (4.00-5.40); RED CELL DISTRIBUTION WIDTH 13.2 % (11.5-14.5); WHITE BLOOD COUNT 4.7 10^3/uL (4.0-10.0)
[2017-09-08 12:39] LABS: CONTROL LINE HCG INT CTR LINE PRESENT; HCG, SERUM QUALITATIVE NEGATIVE (NEGATIVE)
[2017-09-08 12:44] LABS: AMPHETAMINES LEVEL URINE POSITIVE (NEGATIVE); BARBITURATES URINE NEGATIVE (NEGATIVE); BENZODIAZEPINES URINE NEGATIVE (NEGATIVE); CANNABINOIDS URINE NEGATIVE (NEGATIVE); COCAINE METABOLITE URINE NEGATIVE (NEGATIVE); METHADONE URINE NEGATIVE (NEGATIVE); OPIATES URINE NEGATIVE (NEGATIVE); PHENCYCLIDINE URINE NEGATIVE (NEGATIVE)
[2017-09-08 12:55] LABS: ALBUMIN 4.1 GM/DL (3.2-5.2); ALBUMIN/GLOBULIN RATIO 1.05 (1.00-1.93); ALKALINE PHOSPHATASE 84 U/L (45-117); ALT/SGPT 29 U/L (12-78); ANION GAP 7 MEQ/L (8-16); AST/SGOT 34 U/L (7-37); BILIRUBIN,DIRECT 0.1 MG/DL (0.0-0.2); BILIRUBIN,TOTAL 0.3 MG/DL (0.2-1.0); BLOOD UREA NITROGEN 8 MG/DL (7-18); CALCIUM LEVEL 8.2 MG/DL (8.5-10.1); CARBON DIOXIDE LEVEL 29 MEQ/L (21-32); CHLORIDE LEVEL 110 MEQ/L (98-107); CREATININE FOR GFR 0.52 MG/DL (0.55-1.30); ETHYL ALCOHOL (ETHANOL) 0.244 % (0.000-0.010); GLOMERULAR FILTRATION RATE > 60.0 (>60); GLUCOSE, FASTING 97 MG/DL (70-100); POTASSIUM SERUM 3.7 MEQ/L (3.5-5.1); SALICYLATE LEVEL 3.1 MG/DL (5.0-30.0); SODIUM LEVEL 146 MEQ/L (136-145)
[2017-09-08 12:58] LABS: ACETAMINOPHEN LEVEL < 2.0 UG/ML (10.0-30.0)
[2017-09-08] MEDS: ACETAMINOPHEN TAB 650MG DOSE (2X325MG) PO (18:30)
[2017-09-08] MEDS: NICOTINE 21MG/24HR 1 EA TRANSDERMAL TD (18:30)
== END 2017-09-08 20:33 | disposition home or self-care (01) ==
LOC: M ED 11:29
DX: F10.120 Alcohol abuse with intoxication, uncomplicated (principal); F32.9 Major depressive disorder, single episode, unspecified; R53.83 Other fatigue; N80.9 Endometriosis, unspecified; F17.200 Nicotine dependence, unspecified, uncomplicated; Z91.5 Personal history of self-harm; Z88.8 Allergy status to other drugs, medicaments and biological substances; Z79.899 Other long term (current) drug therapy
CPT/HCPCS: 80320

== ENCOUNTER 2017-10-03 11:04 | Outpatient (RCR) | payer MEDICAID | END 2017-10-06 | LOC: M OUTALCOH 11:04 | DX: F10.20 Alcohol dependence, uncomplicated (principal); F11.20 Opioid dependence, uncomplicated; F12.10 Cannabis abuse, uncomplicated ==

== ENCOUNTER 2017-10-06 14:53 | Emergency (ER) | payer OTHER, MEDICAID | END 2017-10-06 15:30 | disposition home or self-care (01) | LOC: M ED 14:53 | DX: G56.91 Unspecified mononeuropathy of right upper limb (principal); Z72.0 Tobacco use; Z79.899 Other long term (current) drug therapy; Z88.8 Allergy status to other drugs, medicaments and biological substances | CPT/HCPCS: 99283 ==

== ENCOUNTER 2017-10-09 14:02 | Outpatient (RCR) | payer MEDICAID | END 2017-11-06 | LOC: M OUTALCOH 14:02 | DX: F10.20 Alcohol dependence, uncomplicated (principal); F11.20 Opioid dependence, uncomplicated; F12.10 Cannabis abuse, uncomplicated ==

== ENCOUNTER 2017-12-11 16:00 | Outpatient (RCR) | payer MEDICAID | END 2018-01-06 | LOC: M OUTALCOH 12-14 08:45 | DX: F10.20 Alcohol dependence, uncomplicated (principal); F11.20 Opioid dependence, uncomplicated; F12.10 Cannabis abuse, uncomplicated ==

== ENCOUNTER → 2018-03-29 | Outpatient (REF) | payer OTHER ==
[~2018-03-29] MED LIST changes: +ACAM0.05; +ADDE12.5 PO; +DRIS50003 PO; +NEUR100C PO; +PROZ20CA11 PO; +SUBO8MIS
== END ==
LOC: M SFHCLERA 15:30
PROVIDERS: ATTEND Physician Assistant
DX: J02.9 Acute pharyngitis, unspecified (principal)

== ENCOUNTER → 2018-04-18 | Outpatient (REF) | payer OTHER | LOC: M SFHCLERA 16:37 | PROVIDERS: ATTEND Physician Assistant | DX: N39.0 Urinary tract infection, site not specified (principal) ==

== ENCOUNTER → 2019-02-10 | Outpatient (CLI) | payer OTHER ==
[~2019-02-10] MED LIST changes: +IBUP-1114 PO; -IBUP40TA PO; +NICO14DI20 EXT; -NICO14PA EXT
--- NOTE | 2019-02-10 18:42 | REP ---
Two-view chest: 02/10/2019. Indication: Chest pain. Comparison: None. Findings: The lungs are clear. There is no pleural effusion or pneumothorax. The cardiac silhouette is unremarkable. Impression: Clear lungs. Electronically Signed by Amos Powers DO 02/10/2019 06:33 P
== END ==
LOC: M LRY 18:02
PROVIDERS: ATTEND Physician Assistant
DX: R07.9 Chest pain, unspecified (principal)

== ENCOUNTER 2022-04-08 12:39 | Emergency (ER) | payer MEDICAID, OTHER ==
[~2022-04-08] VITALS: Ht 162.6 cm; Wt 63.5 kg
[2022-04-08 12:40] VITALS: BP 128/76
== END 2022-04-08 16:30 | disposition left against medical advice (07) ==
LOC: M ED 16:14
DX: Z53.21 Procedure and treatment not carried out due to patient leaving prior to being seen by health care provider (principal)

== ENCOUNTER 2022-04-10 01:41 | Emergency (ER) | payer OTHER ==
[~2022-04-10] VITALS: Ht 162.6 cm; Wt 64.4 kg
[2022-04-10 08:00] VITALS: BP 146/83
[2022-04-10] MEDS ORDERED: cloNIDine 0.1MG TABLET PO ONE (08:00)
[2022-04-10 08:09] VITALS: BP 146/93
== END 2022-04-10 08:55 | disposition home or self-care (01) ==
LOC: M ED 01:41
DX: F11.23 Opioid dependence with withdrawal (principal); F17.200 Nicotine dependence, unspecified, uncomplicated; Z79.899 Other long term (current) drug therapy; Z88.8 Allergy status to other drugs, medicaments and biological substances

== ENCOUNTER 2023-12-10 13:47 | Emergency (ER) | payer BC, OTHER, SELFPAY ==
[~2023-12-10] VITALS: Ht 162.6 cm; Wt 57.5 kg
[~2023-12-10 13:47] MED LIST changes: +BUPRENORPHINE/NALOXONE 8-2MG SUBLINGUAL TABLET(SUBOXONE) SL SCH; -SUBO8MIS; +SUBO8MIS SL
[2023-12-10 14:30] LABS: HEMATOCRIT 32.7 % (36.0-47.0); HEMOGLOBIN 10.4 g/dl (12.0-15.5); MEAN CORPUSCULAR HEMOGLOBIN 26.6 pg (27.0-33.0); MEAN CORPUSCULAR HGB CONC 31.8 g/dl (32.0-36.5); MEAN CORPUSCULAR VOLUME 83.6 fl (80.0-96.0); PLATELET COUNT, AUTOMATED 316 10^3/uL (150-450); RED BLOOD COUNT 3.91 10^6/uL (4.00-5.40); WHITE BLOOD COUNT 8.9 10^3/uL (4.0-10.0)
[2023-12-10] MEDS: BUPRENORPHINE/NALOXONE 8-2MG SUBLINGUAL TABLET(SUBOXONE) SL SCH ×2 (14:46→21:00)
[2023-12-10] MEDS: NICOTINE 21MG/24HR 1 EA TRANSDERMAL TD ONE (14:47)
[2023-12-10 14:51] LABS: AMPHETAMINES LEVEL URINE NEGATIVE (NEGATIVE); BARBITURATES URINE NEGATIVE (NEGATIVE); BENZODIAZEPINES URINE NEGATIVE (NEGATIVE); COCAINE METABOLITE URINE NEGATIVE (NEGATIVE)
[2023-12-10 14:52] LABS: METHADONE URINE NEGATIVE (NEGATIVE); OPIATES URINE NEGATIVE (NEGATIVE); PHENCYCLIDINE URINE NEGATIVE (NEGATIVE)
[2023-12-10 14:54] LABS: ETHYL ALCOHOL (ETHANOL) < 0.003 % (0.000-0.010)
[2023-12-10 14:56] LABS: ALBUMIN 3.6 G/DL (3.2-5.2); ALKALINE PHOSPHATASE 86 U/L (46-116); ALT/SGPT 276 U/L (7.0-40); AST/SGOT 244 U/L (<34); BILIRUBIN,DIRECT 0.1 MG/DL (<0.4); BILIRUBIN,TOTAL 0.4 MG/DL (0.3-1.2); BLOOD UREA NITROGEN 17 MG/DL (9-23); CARBON DIOXIDE LEVEL 34 MMOL/L (20-31); CHLORIDE LEVEL 102 MMOL/L (98-107); CREATININE FOR GFR 0.63 MG/DL (0.55-1.30); GLOMERULAR FILTRATION RATE > 60.0 (>58); GLUCOSE, FASTING 112 MG/DL (60-100); POTASSIUM SERUM 4.1 MMOL/L (3.5-5.1); SALICYLATE LEVEL < 3.0 MG/DL (<30); SODIUM LEVEL 137 MMOL/L (136-145)
[2023-12-10 14:59] LABS: THYROID STIMULATING HORMONE 1.114 uIU/ML (0.55-4.78)
[2023-12-10] MEDS ORDERED: ADDE30TA PO (14:59)
[2023-12-10] MEDS ORDERED: HOME MED LIST COMPLETE! XX SCH (15:05)
[2023-12-10 15:06] LABS: CANNABINOIDS URINE POSITIVE (NEGATIVE)
[2023-12-10 15:10] LABS: HCG, SERUM QUALITATIVE NEGATIVE (NEGATIVE)
[2023-12-11 06:33] VITALS: BP 104/55; TEMP 97.8; O2SAT 97
[2023-12-11] MEDS ORDERED: BUPRENORPHINE/NALOXONE 8-2MG SUBLINGUAL TABLET(SUBOXONE) SL SCH (09:00)
== END 2023-12-11 10:30 | disposition left against medical advice (07) ==
LOC: M ED 13:47
DX: R45.851 Suicidal ideations (principal); F32.A Depression, unspecified; F17.210 Nicotine dependence, cigarettes, uncomplicated; F12.10 Cannabis abuse, uncomplicated; Z88.8 Allergy status to other drugs, medicaments and biological substances; Z79.899 Other long term (current) drug therapy; Z53.9 Procedure and treatment not carried out, unspecified reason

== ENCOUNTER 2023-12-11 11:22 | Inpatient (IN) | payer BC, SELFPAY ==
[~2023-12-11] VITALS: Ht 162.6 cm; Wt 57.5 kg
[~2023-12-11 11:22] MED LIST changes: +ADDE30TA PO; -BUPRENORPHINE/NALOXONE 8-2MG SUBLINGUAL TABLET(SUBOXONE) SL SCH
[2023-12-11] MEDS: BUPRENORPHINE/NALOXONE 8-2MG SUBLINGUAL TABLET(SUBOXONE) SL SCH ×2 (11:47→21:21)
[2023-12-11] MEDS: NICOTINE 21MG/24HR 1 EA TRANSDERMAL TD SCH (11:48)
[2023-12-11] MEDS ORDERED: HOME MED LIST COMPLETE! XX SCH (15:05)
[2023-12-11 17:21] LABS: AMPHETAMINES LEVEL URINE NEGATIVE (NEGATIVE); BARBITURATES URINE NEGATIVE (NEGATIVE); BENZODIAZEPINES URINE NEGATIVE (NEGATIVE); CANNABINOIDS URINE POSITIVE (NEGATIVE); COCAINE METABOLITE URINE NEGATIVE (NEGATIVE); METHADONE URINE NEGATIVE (NEGATIVE); OPIATES URINE NEGATIVE (NEGATIVE); PHENCYCLIDINE URINE NEGATIVE (NEGATIVE)
[2023-12-11] MEDS ORDERED: IBUPROFEN 400MG TAB PO PRN (20:20)
[2023-12-11] MEDS ORDERED: MAALOX 30 ML SUSP *UDC PO PRN (20:20)
[2023-12-11] MEDS ORDERED: traZODone 50 MG TAB PO PRN (20:20)
[2023-12-11] MEDS ORDERED: MOM 30ML SUSPENSION UDC PO PRN (20:20)
[2023-12-11 22:06] VITALS: BP 99/56; TEMP 97.4; TEMP 98.3; O2SAT 99
[2023-12-12 06:23] VITALS: BP 101/54; TEMP 98.5; O2SAT 99
[2023-12-12 14:42] VITALS: BP 109/64; TEMP 98; O2SAT 100
[2023-12-12] MEDS: buPROPion (WELLBUTRIN SR) 100 MG SR TAB PO SCH (20:03)
[2023-12-13 06:17] VITALS: BP 104/51; TEMP 98.8; O2SAT 98
[2023-12-13 15:34] VITALS: BP 114/64; TEMP 98.2; O2SAT 100
[2023-12-14] MEDS: ACETAMINOPHEN TAB 650MG DOSE (2X325MG) PO PRN (01:55)
[2023-12-14 06:26] VITALS: BP 104/55; TEMP 96.2; O2SAT 99
[2023-12-14] MEDS ORDERED: BUPR10TASR PO (08:22)
== END 2023-12-14 11:55 | disposition home or self-care (01) | DRG 754 ==
LOC: M ED 11:22 → M ED INP 20:16 → M PSY 20:50
PROVIDERS: ADMIT Psychiatry & Neurology Psychiatry; ATTEND Psychiatry & Neurology Psychiatry
DX: F43.21 Adjustment disorder with depressed mood (principal); F11.11 Opioid abuse, in remission; G47.419 Narcolepsy without cataplexy; Z59.02 Unsheltered homelessness; Z79.899 Other long term (current) drug therapy; Z88.8 Allergy status to other drugs, medicaments and biological substances; Z63.5 Disruption of family by separation and divorce; Z56.0 Unemployment, unspecified

== ENCOUNTER → 2023-12-18 | Outpatient (CLI) | payer BC ==
[~2023-12-18] MED LIST changes: +BUPR10TASR PO
== END ==
LOC: M OUTALCOH 09:35
PROVIDERS: ATTEND Psychiatry & Neurology Psychiatry
DX: F12.10 Cannabis abuse, uncomplicated (principal); F17.200 Nicotine dependence, unspecified, uncomplicated

== ENCOUNTER → 2024-01-07 | Outpatient (RCR) | payer BC | LOC: M OUTALCOH 12-27 09:58 | PROVIDERS: ATTEND Psychiatry & Neurology Psychiatry | DX: F12.10 Cannabis abuse, uncomplicated (principal); F17.200 Nicotine dependence, unspecified, uncomplicated ==

== ENCOUNTER → 2024-01-16 | Outpatient (CLI) | payer BC ==
[2024-01-16 15:18] LABS: BASO # 0.1 10^3/uL (0.0-0.2); BASO % 1.7 % (0.0-1.0); EOS # 0.3 10^3/uL (0.0-0.5); EOS % 4.6 % (0.0-3.0); HEMATOCRIT 37.4 % (36.0-47.0); LYMPH # 2.1 10^3/uL (1.5-5.0); LYMPH % 32.9 % (24.0-44.0); MEAN CORPUSCULAR HGB CONC 32.1 g/dl (32.0-36.5); MEAN CORPUSCULAR VOLUME 81.1 fl (80.0-96.0); MONO # 0.7 10^3/uL (0.0-0.8); MONO % 10.8 % (2.0-8.0); NEUTROPHILS # 3.2 10^3/uL (1.5-8.5); NEUTROPHILS % 49.7 % (36.0-66.0); PLATELET COUNT, AUTOMATED 321 10^3/uL (150-450); RED BLOOD COUNT 4.61 10^6/uL (4.00-5.40); WHITE BLOOD COUNT 6.5 10^3/uL (4.0-10.0)
[2024-01-16 15:27] LABS: HEMOGLOBIN A1c 4.8 % (4.0-6.0)
[2024-01-16 15:29] LABS: ALBUMIN 4.2 G/DL (3.2-5.2); ALKALINE PHOSPHATASE 77 U/L (46-116); ALT/SGPT 18 U/L (7.0-40); AST/SGOT 13 U/L (<34); BILIRUBIN,TOTAL 0.3 MG/DL (0.3-1.2); BLOOD UREA NITROGEN 18 MG/DL (9-23); CALCIUM LEVEL 10.1 MG/DL (8.5-10.1); CARBON DIOXIDE LEVEL 32 MMOL/L (20-31); CHLORIDE LEVEL 102 MMOL/L (98-107); CHOLESTEROL LEVEL 203 MG/DL (<200); CHOLESTEROL RISK RATIO 2.36 (<5); CREATININE FOR GFR 0.58 MG/DL (0.55-1.30); FOLATE 9.01 NG/ML (>5.4); GLOMERULAR FILTRATION RATE > 60.0 (>58); GLUCOSE, FASTING 88 MG/DL (60-100); HDL CHOLESTEROL 85.7 MG/DL (>40); LDL CHOLESTEROL 99.1 MG/DL (<100); NON-HDL-C 117.3 MG/DL; POTASSIUM SERUM 4.6 MMOL/L (3.5-5.1); SODIUM LEVEL 134 MMOL/L (136-145); THYROID STIMULATING HORMONE 1.577 uIU/ML (0.55-4.78); TOTAL PROTEIN 7.8 G/DL (5.7-8.2); TRIGLYCERIDES LEVEL 91 MG/DL (<150); VITAMIN B12 LEVEL 599 PG/ML (211-911)
== END ==
LOC: M PLALAB 12:51
PROVIDERS: ATTEND Student in an Organized Health Care Education/Training Program
DX: Z00.00 Encounter for general adult medical examination without abnormal findings (principal)

== ENCOUNTER 2024-02-06 14:00 | Outpatient (RCR) | payer BC | END 2024-02-07 | LOC: M OUTALCOH 14:00 | PROVIDERS: ATTEND Psychiatry & Neurology Psychiatry | DX: F12.10 Cannabis abuse, uncomplicated (principal); F17.200 Nicotine dependence, unspecified, uncomplicated | CPT/HCPCS: 99203; G0397 ==

== ENCOUNTER → 2024-02-06 | Outpatient (REF) | payer BC ==
[2024-02-06 14:15] LABS: Trichomonas vaginalis (AMP) NOT DETECTED (NEGATIVE)
== END ==
LOC: M SFHCPLAZ 12:33
PROVIDERS: ATTEND Student in an Organized Health Care Education/Training Program
DX: Z12.4 Encounter for screening for malignant neoplasm of cervix (principal)

== ENCOUNTER → 2024-02-06 | Outpatient (CLI) | payer BC ==
[2024-02-07 18:18] LABS: HEPATITIS B SURFACE ANTIBODY NEGATIVE (POSITIVE)
[2024-02-07 18:24] LABS: HEPATITIS B SURFACE ANTIGEN NEGATIVE (NEGATIVE)
[2024-02-07 18:34] LABS: HIV 1&2 SCREEN NEGATIVE (NEGATIVE)
[2024-02-07 18:42] LABS: HEPATITIS C VIRUS ABY INDEX 0.03 INDEX (<0.8)
== END ==
LOC: M PLALAB 15:27
PROVIDERS: ATTEND Student in an Organized Health Care Education/Training Program
DX: F19.11 Other psychoactive substance abuse, in remission (principal)

== ENCOUNTER → 2024-02-21 | Outpatient (CLI) | payer BC | LOC: M WHC 08:52 | PROVIDERS: ATTEND Student in an Organized Health Care Education/Training Program | DX: Z12.31 Encounter for screening mammogram for malignant neoplasm of breast (principal) ==

== ENCOUNTER 2024-02-25 08:50 | Outpatient (RCR) | payer BC ==
[2024-03-10] MEDS ORDERED: ARMO150T PO (07:43)
[2024-03-10] MEDS ORDERED: AMPH1TAB2 PO (07:43)
[2024-03-10] MEDS ORDERED: BUPR-597 PO (07:43)
[2024-03-10] MEDS ORDERED: BUPR1FIL37 SL (07:43)
== END 2024-03-08 ==
LOC: M OUTALCOH 08:50
PROVIDERS: ATTEND Psychiatry & Neurology Psychiatry
DX: F12.10 Cannabis abuse, uncomplicated (principal); F17.200 Nicotine dependence, unspecified, uncomplicated

== ENCOUNTER → 2024-03-11 | Outpatient (CLI) | payer BC ==
[~2024-03-11] MED LIST changes: +AMPH1TAB2 PO; +ARMO150T PO; +BUPR-597 PO; +BUPR1FIL37 SL
== END ==
LOC: M WHC 13:39
PROVIDERS: ATTEND Student in an Organized Health Care Education/Training Program
DX: Z12.31 Encounter for screening mammogram for malignant neoplasm of breast (principal)

== ENCOUNTER → 2024-04-08 | Outpatient (RCR) | payer BC | LOC: M OUTALCOH 03-11 10:00 | PROVIDERS: ATTEND Psychiatry & Neurology Psychiatry | DX: F12.10 Cannabis abuse, uncomplicated (principal); F17.200 Nicotine dependence, unspecified, uncomplicated ==

== ENCOUNTER 2024-05-08 12:50 | Outpatient (RCR) | payer BC | END 2024-05-09 | LOC: M OUTALCOH 12:50 | PROVIDERS: ATTEND Psychiatry & Neurology Psychiatry | DX: F12.10 Cannabis abuse, uncomplicated (principal); F17.200 Nicotine dependence, unspecified, uncomplicated ==

== ENCOUNTER 2024-06-05 09:00 | Outpatient (RCR) | payer BC, MEDICAID | END 2024-06-06 | LOC: M OUTALCOH 09:00 | PROVIDERS: ATTEND Psychiatry & Neurology Psychiatry | DX: F12.10 Cannabis abuse, uncomplicated (principal); F17.200 Nicotine dependence, unspecified, uncomplicated ==

== ENCOUNTER 2024-06-26 10:29 | Outpatient (RCR) | payer BC | END 2024-07-07 | LOC: M OUTALCOH 10:29 | PROVIDERS: ATTEND Psychiatry & Neurology Psychiatry | DX: F12.10 Cannabis abuse, uncomplicated (principal); F17.200 Nicotine dependence, unspecified, uncomplicated ==

== ENCOUNTER 2024-08-04 16:00 | Outpatient (RCR) | payer BC, MEDICAID ==
[~2024-08-04 16:00] MED LIST changes: -BUPR-597 PO; +BUPR-766 PO
== END 2024-08-06 ==
LOC: M OUTALCOH 16:00
PROVIDERS: ATTEND Psychiatry & Neurology Psychiatry
DX: F12.10 Cannabis abuse, uncomplicated (principal); F17.200 Nicotine dependence, unspecified, uncomplicated

== ENCOUNTER 2024-11-03 10:00 | Outpatient (RCR) | payer MEDICAID ==
[~2024-11-03 10:00] MED LIST changes: -PROZ20CA11 PO; +PROZ20CA12 PO
== END 2024-11-06 ==
LOC: M OUTALCOH 10:00
PROVIDERS: ATTEND Psychiatry & Neurology Psychiatry
DX: F12.10 Cannabis abuse, uncomplicated (principal); F17.200 Nicotine dependence, unspecified, uncomplicated

== ENCOUNTER 2024-12-01 09:16 | Outpatient (RCR) | payer MEDICAID | END 2024-12-07 | LOC: M OUTALCOH 09:16 | PROVIDERS: ATTEND Psychiatry & Neurology Psychiatry | DX: F11.20 Opioid dependence, uncomplicated (principal); F12.10 Cannabis abuse, uncomplicated; F17.200 Nicotine dependence, unspecified, uncomplicated ==

== ENCOUNTER 2024-12-29 09:20 | Outpatient (RCR) | payer MEDICAID | END 2025-01-06 | LOC: M OUTALCOH 09:20 | PROVIDERS: ATTEND Psychiatry & Neurology Psychiatry | DX: F12.10 Cannabis abuse, uncomplicated (principal); F17.200 Nicotine dependence, unspecified, uncomplicated; F11.20 Opioid dependence, uncomplicated ==

== ENCOUNTER 2025-01-26 09:30 | Outpatient (RCR) | payer MEDICAID | END 2025-02-06 | LOC: M OUTALCOH 09:30 | PROVIDERS: ATTEND Psychiatry & Neurology Psychiatry | DX: F12.10 Cannabis abuse, uncomplicated (principal); F11.20 Opioid dependence, uncomplicated; F17.200 Nicotine dependence, unspecified, uncomplicated ==

== ENCOUNTER 2025-03-02 09:30 | Outpatient (RCR) | payer MEDICAID ==
[~2025-03-02 09:30] MED LIST changes: -PROZ20CA12 PO; +PROZ20CA25 PO
== END 2025-03-08 ==
LOC: M OUTALCOH 09:30
PROVIDERS: ATTEND Psychiatry & Neurology Psychiatry
DX: F12.10 Cannabis abuse, uncomplicated (principal); F11.20 Opioid dependence, uncomplicated; F17.200 Nicotine dependence, unspecified, uncomplicated